=== PATIENT | male | born 1975 | race Caucasian/White ===

== ENCOUNTER 2017-10-29 11:36 | Emergency (ER) | payer MEDICAID ==
[2017-10-29 12:50] VITALS: BP 140/88
== END 2017-10-29 18:53 | disposition left against medical advice (07) ==
LOC: ER 11:36
DX: K08.89 Other specified disorders of teeth and supporting structures (principal); Z53.21 Procedure and treatment not carried out due to patient leaving prior to being seen by health care provider

== ENCOUNTER 2017-10-31 14:50 | Emergency (ER) | payer MEDICAID ==
[~2017-10-31] VITALS: Ht 5787.1 cm; Wt 60.3 kg
[2017-10-31 15:07] VITALS: BP 141/99
[2017-10-31] MEDS ORDERED: CLIN-80 PO (15:13)
[2017-10-31] MEDS ORDERED: IBUP-1984 PO (15:13)
== END 2017-10-31 15:27 | disposition home or self-care (01) ==
LOC: ER 14:51
DX: K08.89 Other specified disorders of teeth and supporting structures (principal); F12.10 Cannabis abuse, uncomplicated
CPT/HCPCS: 99283

== ENCOUNTER 2019-09-06 21:50 | Inpatient (IN) | payer MEDICAID ==
[~2019-09-06] VITALS: Ht 175.3 cm; Wt 68.2 kg
[~2019-09-06 21:50] MED LIST: CLIN-90 PO
[2019-09-06] MEDS ORDERED: vancomycin/NS 1 GM ADD-VANTAGE 250 ML IV ONE (23:05)
[2019-09-06] MEDS ORDERED: piperacillin/tazo 3.375gm/50ml 50 ML IV ONE (23:05)
[2019-09-06 23:27] LABS: BASOPHILS % (AUTO) 0.1 % (0-1); WHITE BLOOD COUNT 21.6 X10'3 (4.5-11.0)
[2019-09-06 23:29] LABS: EOSINOPHILS % (AUTO) 0.1 % (0-6); HEMATOCRIT 38.8 % (42.0-52.0); HEMOGLOBIN 12.9 g/dl (14.0-17.9); LYMPHOCYTES # (AUTO) 1.5 X10'3 (1.1-4.8); LYMPHOCYTES % (AUTO) 6.9 % (21-51); MEAN CORPUSCULAR HGB CONC 33.4 g/dL (33.0-36.5); MEAN PLATELET VOLUME 6.4 FL (7.4-10.4); MONOCYTES # (AUTO) 1.7 X10'3 (0-0.9); NEUTROPHILS # (AUTO) 18.3 X10'3 (1.8-7.7); NEUTROPHILS % (AUTO) 84.9 % (42-75); PLATELET COUNT 447 X10'3 (140-440); RED BLOOD COUNT 4.46 X10'6 (4.70-6.10); RED CELL DISTRIBUTION WIDTH 14.7 % (11.5-14.5)
[2019-09-06] MEDS ORDERED: NO HOME MEDS (23:30)
--- NOTE | 2019-09-06 23:30 | NUR ---
PT TO BE ADMITTED. TAKES NO HOME MEDS. REPROTS PAIN IS SEVERE TO LEFT HAND. TYMPANIC TEMP 100.0, OTHERWISE VSS. AWAITING HOSPITALIST.
[2019-09-06 23:35] LABS: PARTIAL THROMBOPLASTIN TIME 30 SECONDS (22-32)
[2019-09-06 23:38] LABS: ALANINE AMINOTRANSFERASE 53 U/L (12-78); ALBUMIN/GLOBULIN RATIO 0.7 (1.1-1.5); ALKALINE PHOSPHATASE 95 IU/L (46-116); ANION GAP 4 (8-16); ASPARTATE AMINO TRANSFERASE 27 U/L (10-37); BILIRUBIN,TOTAL 0.4 MG/DL (0.1-1.0); BLOOD UREA NITROGEN 13 MG/DL (7-18); BUN/CREATININE RATIO 12.6 (5.4-32.0); CALCIUM 9.1 MG/DL (8.5-10.1); CHLORIDE 96 MMOL/L (99-107); CREATININE 1.03 MG/DL (0.60-1.10); GLUCOSE 150 MG/DL (70-104); MAGNESIUM 1.8 MG/DL (1.5-2.4); POTASSIUM 4.2 MMOL/L (3.5-5.1); SODIUM 132 MMOL/L (135-145); TOTAL CARBON DIOXIDE 31.6 MMOL/L (24-32); TOTAL PROTEIN 7.3 G/DL (6.4-8.2); eGFR 79 ML/MIN
[2019-09-07] MEDS ORDERED: mag hydrox/Alum hydrox/simeth 30ml oral suspension PO PRN (00:35)
[2019-09-07] MEDS ORDERED: acetaminophen 325mg tablet PO PRN ×2 (00:35)
[2019-09-07] MEDS ORDERED: ketorolac tromethamine 15mg/ml inj. IV ONE (00:35)
[2019-09-07] MEDS ORDERED: nicotine 14mg patch - 24hr TD SCH (01:02)
--- NOTE | 2019-09-07 01:05 | NUR ---
GAVE PT BLANKETS AND COVERED HIM UP
[2019-09-07] MEDS: normal saline 1000ml 1,000 ML IV SCH ×3 (01:09→20:33)
[2019-09-07] MEDS: ondansetron/PF 4mg/2ml inj IV PRN (01:11)
[2019-09-07 01:23] LABS: CLARITY,URINE CLEAR (Clear); COLOR,URINE YELLOW (Yellow); GLUCOSE, URINE NEGATIVE (Neg); KETONES,URINE NEGATIVE (Neg); LEUKOCYTE ESTERASE ,URINE NEGATIVE (Neg); NITRITES, URINE NEGATIVE (Neg); OCCULT BLOOD,URINE NEGATIVE (Neg); PROTEIN,URINE NEGATIVE (Neg); UROBILINOGEN,URINE 0.2 E.U/dL (0.2-1.0)
[2019-09-07 01:25] LABS: UA COLLECTION TYPE VOIDED
[2019-09-07 01:40] VITALS: BP 138/88
--- NOTE | 2019-09-07 02:31 | NUR ---
0120: Got report from Sparkle, ED RN, 0140: Patient arrived to unit transported via wheelchair. Tech tucked patient in and took vss. 0207: I came back from lunch and talked to patient, hooked him p to IVF, and did an assessment. Patient is not awake enough to DART. MRSA swab was done. Patient is resting comfortably with left had elevated on a pillow.Will continue to monitor.
--- NOTE | 2019-09-07 06:25 | NUR ---
Problems reprioritized. Patient report given, questions answered & plan of care reviewed with CHEYENNE Ramirez.
--- NOTE | 2019-09-07 06:32 | NUR ---
Patient in room [facility]. I have received report from CHEYENNE GONZALES and had the opportunity to ask questions and assume patient care.
[2019-09-07] MEDS: CefTRIAXone/D5W-Rocephin 1gm 50 ML IV SCH (07:24)
[2019-09-07] MEDS: enoxaparin 40mg/0.4ml syringe SQ SCH (07:26)
[2019-09-07 08:00] VITALS: BP 141/86
[2019-09-07] MEDS: vancomycin/NS 1 GM ADD-VANTAGE 250 ML IV SCH ×2 (08:28→21:11)
[2019-09-07] MEDS: ibuprofen tablet 400 MG TABLET PO PRN ×2 (09:32→21:13)
[2019-09-07 09:43] LABS: BASOPHILS % (AUTO) 0.3 % (0-1); EOSINOPHILS % (AUTO) 0.1 % (0-6); HEMATOCRIT 37.2 % (42.0-52.0); HEMOGLOBIN 12.5 g/dl (14.0-17.9); LYMPHOCYTES # (AUTO) 1.4 X10'3 (1.1-4.8); MEAN CORPUSCULAR HEMOGLOBIN 29.3 PG (27.0-31.0); MEAN CORPUSCULAR HGB CONC 33.7 g/dL (33.0-36.5); MEAN CORPUSCULAR VOLUME 86.9 FL (78-98); MEAN PLATELET VOLUME 6.6 FL (7.4-10.4); MONOCYTES # (AUTO) 1.5 X10'3 (0-0.9); MONOCYTES % (AUTO) 8.7 % (2-12); NEUTROPHILS # (AUTO) 14.3 X10'3 (1.8-7.7); NEUTROPHILS % (AUTO) 82.9 % (42-75); PLATELET COUNT 417 X10'3 (140-440); RED BLOOD COUNT 4.28 X10'6 (4.70-6.10); WHITE BLOOD COUNT 17.2 X10'3 (4.5-11.0)
[2019-09-07 09:57] LABS: ALANINE AMINOTRANSFERASE 38 U/L (12-78); ALBUMIN 2.5 G/DL (3.4-5.0); ALBUMIN/GLOBULIN RATIO 0.6 (1.1-1.5); ALKALINE PHOSPHATASE 83 IU/L (46-116); ANION GAP 4 (8-16); ASPARTATE AMINO TRANSFERASE 22 U/L (10-37); BILIRUBIN,TOTAL 0.3 MG/DL (0.1-1.0); BLOOD UREA NITROGEN 11 MG/DL (7-18); BUN/CREATININE RATIO 12.8 (5.4-32.0); CALCIUM 8.7 MG/DL (8.5-10.1); CHLORIDE 102 MMOL/L (99-107); CREATININE 0.86 MG/DL (0.60-1.10); GLUCOSE 174 MG/DL (70-104); POTASSIUM 3.9 MMOL/L (3.5-5.1); SODIUM 135 MMOL/L (135-145); TOTAL CARBON DIOXIDE 29.1 MMOL/L (24-32); TOTAL PROTEIN 6.4 G/DL (6.4-8.2); eGFR > 90 ML/MIN
[2019-09-07] MEDS ORDERED: HYDROcodone/acetaminophen 5mg/325mg tablet PO PRN (12:10)
[2019-09-07] MEDS: HYDROcodone/acetaminophen 10/325mg tab PO PRN ×2 (12:20→18:29)
[2019-09-07 13:13] VITALS: BP 149/86
--- NOTE | 2019-09-07 18:42 | NUR ---
Problems reprioritized. Patient report given, questions answered & plan of care reviewed with Antonia Knight RN.
--- NOTE | 2019-09-07 18:45 | NUR ---
Patient in room [facility]. I have received report from FORD QUINN and had the opportunity to ask questions and assume patient care.
[2019-09-07 20:00] VITALS: BP 147/84
[2019-09-08] VITALS: BP 143/57
--- NOTE | 2019-09-08 00:53 | NUR ---
CALLED DR. KELLEY FOR POSITIVE BLOOD CULTURE GRAM NEG RODS IN AEROBIC BOTTLES FROM 09/06 IV START. NO NEW ORDERS MADE.
[2019-09-08] MEDS: normal saline 1000ml 1,000 ML IV SCH ×2 (01:59→15:35)
[2019-09-08] MEDS: HYDROcodone/acetaminophen 10/325mg tab PO PRN ×3 (03:47→19:33)
[2019-09-08] MEDS ORDERED: pneumococcal 23-VAL P-sac vacc 25 mcg/0.5ml vial IMVAC ONE ×2 (05:10→10:00)
[2019-09-08 05:36] LABS: BASOPHILS % (AUTO) 0.2 % (0-1); EOSINOPHILS # (AUTO) 0.1 X10'3 (0-0.9); EOSINOPHILS % (AUTO) 0.4 % (0-6); HEMATOCRIT 36.5 % (42.0-52.0); HEMOGLOBIN 12.3 g/dl (14.0-17.9); LYMPHOCYTES # (AUTO) 1.9 X10'3 (1.1-4.8); LYMPHOCYTES % (AUTO) 12.4 % (21-51); MEAN CORPUSCULAR HEMOGLOBIN 29.6 PG (27.0-31.0); MEAN CORPUSCULAR HGB CONC 33.8 g/dL (33.0-36.5); MEAN CORPUSCULAR VOLUME 87.5 FL (78-98); MEAN PLATELET VOLUME 6.6 FL (7.4-10.4); MONOCYTES # (AUTO) 1.5 X10'3 (0-0.9); MONOCYTES % (AUTO) 9.7 % (2-12); NEUTROPHILS # (AUTO) 12.1 X10'3 (1.8-7.7); NEUTROPHILS % (AUTO) 77.3 % (42-75); PLATELET COUNT 348 X10'3 (140-440); RED BLOOD COUNT 4.17 X10'6 (4.70-6.10); RED CELL DISTRIBUTION WIDTH 14.6 % (11.5-14.5); WHITE BLOOD COUNT 15.7 X10'3 (4.5-11.0)
[2019-09-08 05:41] LABS: ALBUMIN 2.4 G/DL (3.4-5.0); ANION GAP 6 (8-16); BLOOD UREA NITROGEN 7 MG/DL (7-18); BUN/CREATININE RATIO 10.6 (5.4-32.0); CALCIUM 8.6 MG/DL (8.5-10.1); CHLORIDE 105 MMOL/L (99-107); CREATININE 0.66 MG/DL (0.60-1.10); GLUCOSE 98 MG/DL (70-104); POTASSIUM 3.9 MMOL/L (3.5-5.1); SODIUM 136 MMOL/L (135-145); TOTAL CARBON DIOXIDE 24.9 MMOL/L (24-32); eGFR > 90 ML/MIN
--- NOTE | 2019-09-08 06:26 | NUR ---
Problems reprioritized. Patient report given, questions answered & plan of care reviewed with SOTERO QUINN.
[2019-09-08] MEDS: vancomycin/NS 1 GM ADD-VANTAGE 250 ML IV SCH ×2 (08:04→19:51)
[2019-09-08] MEDS: enoxaparin 40mg/0.4ml syringe SQ SCH (08:05)
[2019-09-08 08:13] VITALS: BP 146/78
[2019-09-08] MEDS: nicotine 14mg patch - 24hr TD SCH (09:16)
[2019-09-08] MEDS ORDERED: FLU VACC QS2019-20 36MOS UP/PF 60 MCG/0.5 ML SYRINGE IMVAC ONE (10:00)
[2019-09-08] MEDS: magnesium hydroxide 30ml (MOM) UD suspension PO PRN ×2 (10:06→20:02)
[2019-09-08] MEDS: CefTRIAXone/D5W-Rocephin 1gm 50 ML IV SCH (10:07)
[2019-09-08 11:11] VITALS: BP 147/78
[2019-09-08] MEDS: ondansetron/PF 4mg/2ml inj IV PRN ×2 (12:27→19:35)
[2019-09-08] MEDS: morphine 2 MG/ML inj. syringe IV PRN (15:34)
[2019-09-08] MEDS ORDERED: LORazepam 2 mg/ml vial IV PRN (15:45)
[2019-09-08] MEDS ORDERED: proMETHazine 25mg tablet PO PRN (15:45)
[2019-09-08] MEDS: LORazepam 1 MG tablet PO PRN (16:10)
[2019-09-08 18:15] VITALS: BP 146/86
--- NOTE | 2019-09-08 18:25 | NUR ---
Problems reprioritized. Patient report given, questions answered & plan of care reviewed with CHEYENNE Olmedo.
--- NOTE | 2019-09-08 18:29 | NUR ---
Patient in room [facility]. I have received report from CHEYENNE Buckley and had the opportunity to ask questions and assume patient care.
[2019-09-08] MEDS ORDERED: VANCOMYCIN LEVEL IV ONE (19:30)
[2019-09-09 00:49] VITALS: BP 125/65
[2019-09-09] MEDS: normal saline 1000ml 1,000 ML IV SCH ×3 (01:01→22:03)
[2019-09-09 05:47] LABS: BASOPHILS % (AUTO) 0.2 % (0-1); EOSINOPHILS # (AUTO) 0.1 X10'3 (0-0.9); EOSINOPHILS % (AUTO) 0.4 % (0-6); HEMOGLOBIN 12.8 g/dl (14.0-17.9); LYMPHOCYTES # (AUTO) 2.1 X10'3 (1.1-4.8); LYMPHOCYTES % (AUTO) 12.9 % (21-51); MEAN CORPUSCULAR HEMOGLOBIN 29.5 PG (27.0-31.0); MEAN CORPUSCULAR HGB CONC 33.6 g/dL (33.0-36.5); MEAN CORPUSCULAR VOLUME 87.6 FL (78-98); MEAN PLATELET VOLUME 6.7 FL (7.4-10.4); MONOCYTES # (AUTO) 1.3 X10'3 (0-0.9); NEUTROPHILS # (AUTO) 12.7 X10'3 (1.8-7.7); NEUTROPHILS % (AUTO) 78.5 % (42-75); PLATELET COUNT 372 X10'3 (140-440); RED BLOOD COUNT 4.34 X10'6 (4.70-6.10); RED CELL DISTRIBUTION WIDTH 14.9 % (11.5-14.5); WHITE BLOOD COUNT 16.2 X10'3 (4.5-11.0)
[2019-09-09 06:04] LABS: ALBUMIN 2.4 G/DL (3.4-5.0); ANION GAP 6 (8-16); BLOOD UREA NITROGEN 7 MG/DL (7-18); BUN/CREATININE RATIO 9.9 (5.4-32.0); CALCIUM 8.8 MG/DL (8.5-10.1); CHLORIDE 102 MMOL/L (99-107); CREATININE 0.71 MG/DL (0.60-1.10); GLUCOSE 91 MG/DL (70-104); SODIUM 134 MMOL/L (135-145); eGFR > 90 ML/MIN
[2019-09-09] MEDS: HYDROcodone/acetaminophen 10/325mg tab PO PRN ×3 (06:24→20:00)
[2019-09-09] MEDS: LORazepam 1 MG tablet PO PRN ×3 (06:37→20:39)
[2019-09-09 08:00] VITALS: BP 140/82
[2019-09-09] MEDS: nicotine 14mg patch - 24hr TD SCH (08:19)
[2019-09-09] MEDS: CefTRIAXone/D5W-Rocephin 1gm 50 ML IV SCH (08:19)
[2019-09-09] MEDS: enoxaparin 40mg/0.4ml syringe SQ SCH (08:20)
[2019-09-09] MEDS: vancomycin/NS 1 GM ADD-VANTAGE 250 ML IV SCH ×2 (09:19→16:31)
[2019-09-09 11:00] VITALS: BP 143/89
[2019-09-09] MEDS: levoFLOXACIN 750MG TABLET PO SCH (11:55)
[2019-09-09] MEDS: clindamycin 600mg/D5W 50ml 50 ML IV SCH ×2 (14:29→20:01)
[2019-09-09 18:00] VITALS: BP 148/89
--- NOTE | 2019-09-09 18:00 | NUR ---
NORCO 10 WAS GIVEN WITH STUDENT NURSE AT 1300 AND PULLED OUT OF [place] AT 1251. MEDICATION WAS NOT SCANNED, MEDICATION CHECKS WERE COMPLETED TOGETHER.
--- NOTE | 2019-09-09 18:26 | NUR ---
Patient in room [facility]. I have received report from CHEYENNE Buckley and had the opportunity to ask questions and assume patient care.
--- NOTE | 2019-09-09 18:27 | NUR ---
Problems reprioritized. Patient report given, questions answered & plan of care reviewed with CHEYENNE RAY.
[2019-09-09] MEDS: magnesium hydroxide 30ml (MOM) UD suspension PO PRN (20:39)
[2019-09-10] VITALS (17 sets, daily range): BP systolic 119–167; BP diastolic 60–90
[2019-09-10] MEDS: vancomycin/NS 1 GM ADD-VANTAGE 250 ML IV SCH ×2 (00:02→09:25)
[2019-09-10] MEDS: clindamycin 600mg/D5W 50ml 50 ML IV SCH ×4 (02:06→20:19)
--- NOTE | 2019-09-10 05:55 | NUR ---
Entered room and was informed of pt's dislodged EJ PIV. No bruising or redness at site. Cannula intact. Will inform day nurse.
--- NOTE | 2019-09-10 06:36 | NUR ---
Problems reprioritized. Patient report given, questions answered & plan of care reviewed with Gisella Gaitan RN.
--- NOTE | 2019-09-10 06:57 | NUR ---
Patient in room [facility]. I have received report from CHEYENNE Olmedo and had the opportunity to ask questions and assume patient care.
[2019-09-10] MEDS ORDERED: VANCOMYCIN LEVEL IV ONE (07:30)
[2019-09-10] MEDS: HYDROcodone/acetaminophen 10/325mg tab PO PRN ×3 (07:51→20:18)
[2019-09-10] MEDS: nicotine 14mg patch - 24hr TD SCH (07:51)
[2019-09-10] MEDS: enoxaparin 40mg/0.4ml syringe SQ SCH (07:58)
[2019-09-10] MEDS: LORazepam 1 MG tablet PO PRN ×2 (08:05→21:22)
[2019-09-10] MEDS: normal saline 1000ml 1,000 ML IV SCH ×2 (08:33→17:36)
[2019-09-10 09:25] LABS: BASOPHILS % (AUTO) 0.4 % (0-1); EOSINOPHILS # (AUTO) 0.1 X10'3 (0-0.9); EOSINOPHILS % (AUTO) 0.6 % (0-6); HEMATOCRIT 39.2 % (42.0-52.0); LYMPHOCYTES # (AUTO) 1.7 X10'3 (1.1-4.8); LYMPHOCYTES % (AUTO) 15.3 % (21-51); MEAN CORPUSCULAR HEMOGLOBIN 29.1 PG (27.0-31.0); MEAN CORPUSCULAR VOLUME 88.1 FL (78-98); MEAN PLATELET VOLUME 6.5 FL (7.4-10.4); MONOCYTES # (AUTO) 0.8 X10'3 (0-0.9); MONOCYTES % (AUTO) 7.1 % (2-12); NEUTROPHILS # (AUTO) 8.7 X10'3 (1.8-7.7); NEUTROPHILS % (AUTO) 76.6 % (42-75); PLATELET COUNT 414 X10'3 (140-440); RED BLOOD COUNT 4.45 X10'6 (4.70-6.10); RED CELL DISTRIBUTION WIDTH 14.7 % (11.5-14.5); WHITE BLOOD COUNT 11.3 X10'3 (4.5-11.0)
[2019-09-10 09:37] LABS: ALBUMIN 2.5 G/DL (3.4-5.0); ANION GAP 8 (8-16); BLOOD UREA NITROGEN 9 MG/DL (7-18); BUN/CREATININE RATIO 14.8 (5.4-32.0); CALCIUM 9.3 MG/DL (8.5-10.1); CHLORIDE 101 MMOL/L (99-107); CREATININE 0.61 MG/DL (0.60-1.10); GLUCOSE 92 MG/DL (70-104); POTASSIUM 4.3 MMOL/L (3.5-5.1); SODIUM 135 MMOL/L (135-145); TOTAL CARBON DIOXIDE 26.5 MMOL/L (24-32); eGFR > 90 ML/MIN
[2019-09-10] MEDS: levoFLOXACIN 750MG TABLET PO SCH (11:00)
[2019-09-10 11:40] LABS: BASOPHILS # (AUTO) 0.1 X10'3 (0-0.2); BASOPHILS % (AUTO) 0.5 % (0-1); EOSINOPHILS # (AUTO) 0.1 X10'3 (0-0.9); EOSINOPHILS % (AUTO) 0.7 % (0-6); HEMATOCRIT 40.7 % (42.0-52.0); HEMOGLOBIN 13.7 g/dl (14.0-17.9); LYMPHOCYTES # (AUTO) 2.2 X10'3 (1.1-4.8); MEAN CORPUSCULAR HEMOGLOBIN 29.4 PG (27.0-31.0); MEAN CORPUSCULAR HGB CONC 33.6 g/dL (33.0-36.5); MEAN CORPUSCULAR VOLUME 87.2 FL (78-98); MEAN PLATELET VOLUME 6.4 FL (7.4-10.4); MONOCYTES # (AUTO) 0.8 X10'3 (0-0.9); MONOCYTES % (AUTO) 7.3 % (2-12); NEUTROPHILS # (AUTO) 7.5 X10'3 (1.8-7.7); NEUTROPHILS % (AUTO) 70.5 % (42-75); PLATELET COUNT 382 X10'3 (140-440); RED BLOOD COUNT 4.67 X10'6 (4.70-6.10); RED CELL DISTRIBUTION WIDTH 14.7 % (11.5-14.5); WHITE BLOOD COUNT 10.6 X10'3 (4.5-11.0)
[2019-09-10 11:53] LABS: PARTIAL THROMBOPLASTIN TIME 30 SECONDS (22-32)
[2019-09-10 11:57] LABS: ALANINE AMINOTRANSFERASE 31 U/L (12-78); ALBUMIN 2.5 G/DL (3.4-5.0); ALBUMIN/GLOBULIN RATIO 0.5 (1.1-1.5); ALKALINE PHOSPHATASE 73 IU/L (46-116); ANION GAP 8 (8-16); ASPARTATE AMINO TRANSFERASE 22 U/L (10-37); BILIRUBIN,TOTAL 0.3 MG/DL (0.1-1.0); BLOOD UREA NITROGEN 9 MG/DL (7-18); BUN/CREATININE RATIO 13.8 (5.4-32.0); CALCIUM 9.3 MG/DL (8.5-10.1); CHLORIDE 102 MMOL/L (99-107); CREATININE 0.65 MG/DL (0.60-1.10); GLUCOSE 82 MG/DL (70-104); POTASSIUM 4.3 MMOL/L (3.5-5.1); SODIUM 136 MMOL/L (135-145); TOTAL CARBON DIOXIDE 26.2 MMOL/L (24-32); TOTAL PROTEIN 7.1 G/DL (6.4-8.2); eGFR > 90 ML/MIN
[2019-09-10] MEDS ORDERED: nicotine 21mg patch - 24 hr TD ONE (12:00)
[2019-09-10] MEDS ORDERED: ringers solution, lacted 1,000 ML IV SCH (12:52)
[2019-09-10] MEDS ORDERED: ondansetron/PF 4mg/2ml inj IV PRN (12:55)
[2019-09-10] MEDS ORDERED: labetalol 20mg/4ml (5mg/ml) syringe IV PRN (12:55)
[2019-09-10] MEDS ORDERED: fentaNYL/PF 50MCG/1 ML 2ML syringe IV PRN ×2 (12:55)
[2019-09-10] MEDS ORDERED: morphine 4 MG/ML inj SYRINge IV PRN ×2 (12:55)
[2019-09-10] MEDS ORDERED: hydrALAZINE 20mg/ml inj. IV PRN (12:55)
[2019-09-10] MEDS: BUPIVAcaine/PF 2.5mg/ml (0.25%) 10ml vial ONE ×2 (13:10→13:45)
[2019-09-10] MEDS ORDERED: sevoflurane 250ml liquid IH ONE (13:10)
[2019-09-10] MEDS ORDERED: midazolam 2 mg/2 ml injection ONE (13:16)
[2019-09-10] MEDS ORDERED: fentaNYL/PF 50MCG/1 ML 2ML syringe ONE (13:16)
[2019-09-10] MEDS ORDERED: LIDOcaine 2% (20mg/ml) 5ml vial ONE (13:18)
[2019-09-10] MEDS ORDERED: propofol inj 20 ML IV ONE (13:18)
[2019-09-10] MEDS ORDERED: dexamethasone sod phosphate 4mg/ml inj. ONE (13:23)
[2019-09-10] MEDS ORDERED: ondansetron/PF 4mg/2ml inj ONE (13:23)
[2019-09-10] MEDS ORDERED: ePHEDrine 50MG/ML INJ. ONE (13:49)
[2019-09-10] MEDS ORDERED: acetaminophen 1,000mg/100ml IV 100 ML IV ONE (14:00)
--- NOTE | 2019-09-10 14:25 | NUR ---
ADMITTED TO PACU FROM OR ACCOMPANIED BY ANESTHESIA. INTIAL PHYSICAL ASSESSMENT DONE AND RECORDED. REPORT RECEIVED FROM ANESTHESIA.
--- NOTE | 2019-09-10 15:07 | NUR ---
Received report from CHEYENNE Velez in recovery. patient to arrive to room 350B.
--- NOTE | 2019-09-10 15:10 | NUR ---
PACU DISCHARGE CRITERIA MET, REPORT GIVEN TO FLOOR. DENIES PAIN OR DISCOMFORT AT TIME OF DISCHARGE, TRANSFERRED TO ROOM IN STABLE GOOD CONDITION.
[2019-09-10] MEDS: VANCOmycin 1250MG/NS 250ml Bag 250 ML IV SCH (17:38)
--- NOTE | 2019-09-10 18:20 | NUR ---
Patient in room [facility]. I have received report from Gisella Gaitan RN and had the opportunity to ask questions and assume patient care.
--- NOTE | 2019-09-10 18:20 | NUR ---
Problems reprioritized. Patient report given, questions answered & plan of care reviewed with CHEYENNE Olmedo.
[2019-09-10] MEDS: morphine 2 MG/ML inj. syringe IV PRN (23:17)
[2019-09-11] VITALS: BP 125/72
[2019-09-11] MEDS: VANCOmycin 1250MG/NS 250ml Bag 250 ML IV SCH ×2 (00:35→08:20)
[2019-09-11] MEDS: clindamycin 600mg/D5W 50ml 50 ML IV SCH ×4 (02:07→19:16)
[2019-09-11] MEDS: HYDROcodone/acetaminophen 10/325mg tab PO PRN ×3 (02:33→17:52)
[2019-09-11] MEDS: normal saline 1000ml 1,000 ML IV SCH ×2 (04:33→21:09)
[2019-09-11 04:34] VITALS: BP 139/76
[2019-09-11 05:19] LABS: BASOPHILS % (AUTO) 0.2 % (0-1); EOSINOPHILS % (AUTO) 0.1 % (0-6); HEMATOCRIT 37.2 % (42.0-52.0); HEMOGLOBIN 12.5 g/dl (14.0-17.9); LYMPHOCYTES # (AUTO) 1.7 X10'3 (1.1-4.8); LYMPHOCYTES % (AUTO) 9.8 % (21-51); MEAN CORPUSCULAR HEMOGLOBIN 29.3 PG (27.0-31.0); MEAN CORPUSCULAR HGB CONC 33.7 g/dL (33.0-36.5); MEAN CORPUSCULAR VOLUME 86.8 FL (78-98); MEAN PLATELET VOLUME 6.8 FL (7.4-10.4); MONOCYTES % (AUTO) 5.9 % (2-12); NEUTROPHILS # (AUTO) 14.5 X10'3 (1.8-7.7); PLATELET COUNT 460 X10'3 (140-440); RED BLOOD COUNT 4.28 X10'6 (4.70-6.10); RED CELL DISTRIBUTION WIDTH 14.6 % (11.5-14.5); WHITE BLOOD COUNT 17.3 X10'3 (4.5-11.0)
[2019-09-11 05:32] LABS: ALBUMIN 2.5 G/DL (3.4-5.0); ANION GAP 9 (8-16); BLOOD UREA NITROGEN 16 MG/DL (7-18); BUN/CREATININE RATIO 22.2 (5.4-32.0); CALCIUM 8.9 MG/DL (8.5-10.1); CHLORIDE 101 MMOL/L (99-107); CREATININE 0.72 MG/DL (0.60-1.10); GLUCOSE 99 MG/DL (70-104); POTASSIUM 4.6 MMOL/L (3.5-5.1); SODIUM 134 MMOL/L (135-145); TOTAL CARBON DIOXIDE 23.8 MMOL/L (24-32); eGFR > 90 ML/MIN
--- NOTE | 2019-09-11 06:31 | NUR ---
Problems reprioritized. Patient report given, questions answered & plan of care reviewed with CHEYENNE Torrez.
--- NOTE | 2019-09-11 06:31 | NUR ---
Patient in room [facility]. I have received report from Shara QUINN and had the opportunity to ask questions and assume patient care.
--- NOTE | 2019-09-11 06:35 | NUR ---
Patient in room [facility]. I have received report from Katina QUINN and had the opportunity to ask questions and assume patient care.
[2019-09-11 07:00] VITALS: BP 142/86
[2019-09-11] MEDS: enoxaparin 40mg/0.4ml syringe SQ SCH (07:29)
[2019-09-11 11:00] VITALS: BP 148/85
[2019-09-11] MEDS: morphine 2 MG/ML inj. syringe IV PRN ×3 (11:34→19:16)
[2019-09-11] MEDS: levoFLOXACIN 750MG TABLET PO SCH (11:34)
--- NOTE | 2019-09-11 11:45 | NUR ---
Patient complaining of abdominal pain, refused Maalox claimed that it won't work. Patient was asking for increased [place] dose, Morphine 1mg IV given for pain. Dr. Phillips paged about this
[2019-09-11] MEDS: LORazepam 1 MG tablet PO PRN (12:53)
--- NOTE | 2019-09-11 15:24 | NUR ---
Initial: Pt admitted for cellulitis of left hand and lymphangitis s/p I&D. Visited pt at bedside and provided verbal and written protein education and RD contact information. Pt documented with 75-100% PO intake on regular diet. Pt agreed to double meat TID to meet increased protein needs. Pt reports LBM 09/10, however pt c/o constipation and agrees to power pudding at breakfast. Pt with additional food preferences: request no milk to drink and double oatmeal with all breakfasts. All food preferences d/w dietary. Will continue to follow. Recommendation: 1. Continue regular diet 2. double meat TID; double oatmeal QD at breakfast; no milk to drink 3. bowel care as needed 4. weight per rx Addendum: 09/11/19 at [address] Amended: Links added. Addendum: 09/11/19 at [address] I have reviewed and agree with note by Baker Apprentice. Alejandra Garvin, CHANCE
[2019-09-11] MEDS ORDERED: VANCOMYCIN LEVEL IV ONE (15:30)
[2019-09-11] MEDS: ondansetron/PF 4mg/2ml inj IV PRN (15:54)
[2019-09-11] MEDS ORDERED: temazepam 15mg capsule PO PRN (16:10)
--- NOTE | 2019-09-11 17:08 | NUR ---
Patient refusing blood draw for Vanco through, pharmacist notified. Pharmacist called me back stating he spoke to Dr. Phillips about patient's refusal of blood draw to check the Vanco level. Per pharmacist Dr. Phillips agreed to change the Vanco to Zyvox
--- NOTE | 2019-09-11 18:24 | NUR ---
Problems reprioritized. Patient report given, questions answered & plan of care reviewed with Radha QUINN.
[2019-09-11] MEDS: docusate sod 100mg capsule PO SCH (19:16)
[2019-09-11] MEDS: linezolid 600mg tablet PO SCH (19:16)
[2019-09-11] MEDS: lactobacillus rhamnosus 10,000 MMU CELLS/CAPSULE PO SCH (19:16)
[2019-09-11 20:00] VITALS: BP 134/71
[2019-09-12] VITALS: BP 133/72
[2019-09-12] MEDS: HYDROcodone/acetaminophen 10/325mg tab PO PRN (00:15)
[2019-09-12] MEDS: magnesium hydroxide 30ml (MOM) UD suspension PO PRN (00:16)
[2019-09-12] MEDS: normal saline 1000ml 1,000 ML IV SCH ×3 (00:33→19:17)
[2019-09-12] MEDS: clindamycin 600mg/D5W 50ml 50 ML IV SCH ×4 (02:59→19:16)
--- NOTE | 2019-09-12 06:30 | NUR ---
Patient in room [facility]. I have received report from Radha QUINN and had the opportunity to ask questions and assume patient care.
--- NOTE | 2019-09-12 06:35 | NUR ---
Problems reprioritized. Patient report given, questions answered & plan of care reviewed with CHEYENNE Martínez.
[2019-09-12 07:15] VITALS: BP 121/71
[2019-09-12] MEDS: morphine 2 MG/ML inj. syringe IV PRN (07:38)
[2019-09-12] MEDS: enoxaparin 40mg/0.4ml syringe SQ SCH (08:00)
[2019-09-12] MEDS: docusate sod 100mg capsule PO SCH ×2 (08:42→19:16)
[2019-09-12] MEDS: lactobacillus rhamnosus 10,000 MMU CELLS/CAPSULE PO SCH ×2 (08:42→19:16)
[2019-09-12] MEDS: linezolid 600mg tablet PO SCH ×2 (08:43→19:16)
[2019-09-12] MEDS: nicotine 21mg patch - 24 hr TD SCH (08:44)
[2019-09-12 10:49] LABS: BASOPHILS % (AUTO) 0.4 % (0-1); EOSINOPHILS # (AUTO) 0.1 X10'3 (0-0.9); EOSINOPHILS % (AUTO) 0.9 % (0-6); HEMATOCRIT 38.2 % (42.0-52.0); HEMOGLOBIN 12.6 g/dl (14.0-17.9); LYMPHOCYTES # (AUTO) 2.3 X10'3 (1.1-4.8); LYMPHOCYTES % (AUTO) 22.2 % (21-51); MEAN CORPUSCULAR HEMOGLOBIN 29.1 PG (27.0-31.0); MEAN CORPUSCULAR HGB CONC 33.1 g/dL (33.0-36.5); MEAN CORPUSCULAR VOLUME 88.1 FL (78-98); MEAN PLATELET VOLUME 6.7 FL (7.4-10.4); MONOCYTES % (AUTO) 10.1 % (2-12); NEUTROPHILS # (AUTO) 6.7 X10'3 (1.8-7.7); NEUTROPHILS % (AUTO) 66.4 % (42-75); PLATELET COUNT 434 X10'3 (140-440); RED BLOOD COUNT 4.34 X10'6 (4.70-6.10); RED CELL DISTRIBUTION WIDTH 14.5 % (11.5-14.5); WHITE BLOOD COUNT 10.2 X10'3 (4.5-11.0)
[2019-09-12 10:57] LABS: ALBUMIN 2.5 G/DL (3.4-5.0); ANION GAP 8 (8-16); BLOOD UREA NITROGEN 12 MG/DL (7-18); BUN/CREATININE RATIO 15.4 (5.4-32.0); C-REACTIVE PROTEIN 0.71 MG/DL (0.0-0.5); CALCIUM 8.7 MG/DL (8.5-10.1); CHLORIDE 99 MMOL/L (99-107); CREATININE 0.78 MG/DL (0.60-1.10); GLUCOSE 124 MG/DL (70-104); POTASSIUM 3.8 MMOL/L (3.5-5.1); SODIUM 136 MMOL/L (135-145); TOTAL CARBON DIOXIDE 28.7 MMOL/L (24-32); eGFR > 90 ML/MIN
[2019-09-12 11:00] VITALS: BP 148/86
--- NOTE | 2019-09-12 12:32 | NUR ---
Pt receiving Zyvox seen at bedside and provided with written and verbal low tyramine nutrition therapy education. All of patient's questions answered, pt already provided with RD contact information yesterday. Pt requests jyothi Kim/lolis vazquez. Will continue to follow. Addendum: 09/12/19 at [address] Amended: Links added.
[2019-09-12] MEDS: levoFLOXACIN 750MG TABLET PO SCH (13:11)
[2019-09-12] MEDS: buprenorphine/naloxone 8MG-2MG SUBlingual film SL SCH (13:59)
[2019-09-12 14:03] LABS: HIV ANTIBODY 1&2 RAPID NON-REACTIVE (Neg)
--- NOTE | 2019-09-12 18:20 | NUR ---
Received report from CHEYENNE Martínez and had the opportunity to ask questions and assume patient care. Patient is awake and alert on room air, in no apparent distress. Call light and items of frequent use within reach. Will continue to monitor.
--- NOTE | 2019-09-12 18:28 | NUR ---
Problems reprioritized. Patient report given, questions answered & plan of care reviewed with Radha QUINN.
[2019-09-12] MEDS ORDERED: HYDROcodone/acetaminophen 5mg/325mg tablet PO PRN (19:10)
[2019-09-12 20:00] VITALS: BP 114/73
[2019-09-13] VITALS: BP 110/70
[2019-09-13] MEDS: clindamycin 600mg/D5W 50ml 50 ML IV SCH ×2 (03:21→07:14)
--- NOTE | 2019-09-13 06:18 | NUR ---
Problems reprioritized. Patient report given, questions answered & plan of care reviewed with CHEYENNE Martínez.
--- NOTE | 2019-09-13 06:52 | NUR ---
Patient in room [facility]. I have received report from ROOSEVELT QUINN and had the opportunity to ask questions and assume patient care.
[2019-09-13] MEDS: normal saline 1000ml 1,000 ML IV SCH (07:15)
[2019-09-13] MEDS: lactobacillus rhamnosus 10,000 MMU CELLS/CAPSULE PO SCH (07:21)
[2019-09-13] MEDS: docusate sod 100mg capsule PO SCH (07:21)
[2019-09-13] MEDS: buprenorphine/naloxone 8MG-2MG SUBlingual film SL SCH (07:22)
[2019-09-13] MEDS: nicotine 21mg patch - 24 hr TD SCH (07:23)
[2019-09-13] MEDS: enoxaparin 40mg/0.4ml syringe SQ SCH (07:32)
[2019-09-13 07:34] VITALS: BP 130/80
[2019-09-13] MEDS: linezolid 600mg tablet PO SCH (08:08)
[2019-09-13] MEDS: levoFLOXACIN 750MG TABLET PO SCH (11:16)
--- NOTE | 2019-09-13 11:45 | NUR ---
Removed old dressing with saline and replaced with xeroform 4x4 susan and GALILEA wrapped. Wound swelling had gone way done from pics and surgical incision and stiches looked dry and clean. Left ring finger wound was open and very tender.
[2019-09-13 12:10] VITALS: BP 115/66
[2019-09-13] MEDS ORDERED: HYDR-4383 PO (13:41)
[2019-09-13] MEDS ORDERED: DOXY100C2 PO (13:41)
[2019-09-13] MEDS ORDERED: LEVO750T21 PO (13:41)
--- NOTE | 2019-09-13 14:56 | NUR ---
Pt discharged with all belongings and provided with clean clothes and sack lunch. Discharge instructions and medications reviewed, triplicate for [place] [id number] provided to patient with instructions to take to pharmacy of choice to fill. IV DC'd, cannula intact. Extra dressing supplies provided to pt with instructions to follow up with the [facility] for wound care in 2-3 days. Pt escorted to front lobby by PCT.
[2019-09-13] MEDS ORDERED: DOXYCYCLINE 100MG CAPSULE PO SCH (17:30)
== END 2019-09-13 14:54 | disposition home or self-care (01) | DRG 720 ==
LOC: ER 21:51 → ED HOLD 09-07 00:33 → SUR 3N 09-07 01:36
PROVIDERS: ADMIT Hospitalist; ATTEND Internal Medicine
PROC: 0H9GXZZ Drainage of Left Hand Skin, External Approach (ICD-10-PCS; principal; 2019-09-10 13:10)
DX: A41.9 Sepsis, unspecified organism (principal); E43 Unspecified severe protein-calorie malnutrition; F19.10 Other psychoactive substance abuse, uncomplicated; I89.1 Lymphangitis; L03.114 Cellulitis of left upper limb; W26.8XXA Contact with other sharp object(s), not elsewhere classified, initial encounter; S61.215A Laceration without foreign body of left ring finger without damage to nail, initial encounter; L02.512 Cutaneous abscess of left hand; M65.842 Other synovitis and tenosynovitis, left hand; B19.20 Unspecified viral hepatitis C without hepatic coma; Z59.0 Homelessness
CPT/HCPCS: 36415; 71045; 73130; 80048; 80053; 80202; 81003; 82948; 83605; 83735; 84145; 85025; 85610; 85651; 85730; 86140; 86703; 87040; 87070; 87075; 87077; 87081; 87186; 90732; 93005; 93306; 96365; 96368; 99285; A4618; A6222; A6449; A7000; G0378; J0131; J0696; J1100; J1650; J1885; J2001; J2250; J2270; J2405; J2543; J2704; J3010; J3370; J3490; J7030; J7120; Q0169; Q2037

== ENCOUNTER 2020-05-06 22:56 | Emergency (ER) | payer MEDICAID ==
[~2020-05-06] VITALS: Ht 175.3 cm; Wt 75.0 kg
[~2020-05-06 22:56] MED LIST changes: -CLIN-90 PO; +HYDR-4383 PO
[2020-05-07] MEDS ORDERED: CEPH500C5 PO (00:50)
--- NOTE | 2020-05-07 02:04 | NUR ---
GAVE PT CRUTCHES AND ASKED PT IF HE KNEW HOW TO USE THEN SAID THAT HE DID.
[2020-05-07 02:05] VITALS: BP 153/75
== END 2020-05-07 02:09 | disposition home or self-care (01) ==
LOC: ER 22:57
DX: L03.116 Cellulitis of left lower limb (principal); M25.572 Pain in left ankle and joints of left foot; M25.472 Effusion, left ankle; F12.90 Cannabis use, unspecified, uncomplicated; F11.90 Opioid use, unspecified, uncomplicated; Z86.19 Personal history of other infectious and parasitic diseases; Z72.89 Other problems related to lifestyle; Z56.0 Unemployment, unspecified; Z79.2 Long term (current) use of antibiotics; Z79.899 Other long term (current) drug therapy
CPT/HCPCS: 29515; 73610; 73700; 99284

== ENCOUNTER 2024-11-10 12:40 | Emergency (ER) | payer MEDICAID ==
[~2024-11-10] VITALS: Ht 175.3 cm; Wt 73.4 kg
[2024-11-10 12:40] VITALS: BP 145/81; RESP 18
[~2024-11-10 12:40] MED LIST changes: +NAPR-56 PO; +PENI250T2 PO; +PHEN1SUP96 PR
[2024-11-10 15:22] LABS: BASOPHILS % (AUTO) 0.6 % (0-1); EOSINOPHILS # (AUTO) 0.1 X10'3 (0-0.9); EOSINOPHILS % (AUTO) 2.4 % (0-6); HEMATOCRIT 37.3 % (42.0-52.0); HEMOGLOBIN 12.7 g/dl (14.0-17.9); LYMPHOCYTES # (AUTO) 1.6 X10'3 (1.1-4.8); LYMPHOCYTES % (AUTO) 24.9 % (21-51); MEAN CORPUSCULAR HEMOGLOBIN 30.8 PG (27.0-31.0); MEAN CORPUSCULAR HGB CONC 34.1 g/dL (33.0-36.5); MEAN CORPUSCULAR VOLUME 90.4 FL (78-98); MEAN PLATELET VOLUME 7.3 FL (7.4-10.4); MONOCYTES # (AUTO) 0.6 X10'3 (0-0.9); NEUTROPHILS # (AUTO) 3.9 X10'3 (1.8-7.7); NEUTROPHILS % (AUTO) 63.1 % (42-75); PLATELET COUNT 258 X10'3 (140-440); RED BLOOD COUNT 4.12 X10'6 (4.70-6.10); RED CELL DISTRIBUTION WIDTH 13.6 % (11.5-14.5); WHITE BLOOD COUNT 6.2 X10'3 (4.5-11.0)
[2024-11-10 15:31] LABS: ALBUMIN 2.9 G/DL (3.4-5.0); ANION GAP 8 (8-16); BLOOD UREA NITROGEN 8 MG/DL (7-18); BUN/CREATININE RATIO 10.4 (10.0-20.0); CALCIUM 8.8 MG/DL (8.5-10.1); CHLORIDE 103 MMOL/L (99-107); CREATININE 0.77 MG/DL (0.60-1.10); GLUCOSE 162 MG/DL (70-104); POTASSIUM 3.5 MMOL/L (3.5-5.1); SODIUM 139 MMOL/L (135-145); TOTAL CARBON DIOXIDE 28.4 MMOL/L (24-32); eCRCL 119 ML/MIN; eGFR > 90 ML/MIN
[2024-11-10] MEDS: DEXTROSE 5% IV ONE (16:09)
[2024-11-10] MEDS: DALBAVANCIN IV ONE (16:09)
[2024-11-10] MEDS: WATER IV ONE (16:09)
[2024-11-10] MEDS: acetaminophen 325mg tablet PO ONE (16:10)
[2024-11-10] MEDS: LIDOcaine 1% 30ml preserv. free vial IJ STA (16:39)
[2024-11-10] MEDS ORDERED: DOXY100C43 PO (16:54)
[2024-11-10 17:37] VITALS: PULSE 130; TEMP 98; O2SAT 95
== END 2024-11-10 17:41 | disposition home or self-care (01) ==
LOC: ER 12:40
DX: L02.511 Cutaneous abscess of right hand (principal); L02.413 Cutaneous abscess of right upper limb; L03.113 Cellulitis of right upper limb; F12.90 Cannabis use, unspecified, uncomplicated; Z79.2 Long term (current) use of antibiotics; Z79.899 Other long term (current) drug therapy
CPT/HCPCS: 10060; 36415; 80048; 85025; 96365; 99284; A6266; J0875; J7060; A6449